=== PATIENT | male | born 1995 | race Caucasian/White ===

== ENCOUNTER 2019-09-11 12:18 | Day surgery (SDC) | payer OTHER ==
[~2019-09-11 12:18] MED LIST: CEFAZOLIN SODIUM IN 0.9 % NACL 2 GM/100 ML BAG IV ONE
[2019-09-11] MEDS ORDERED: HYDROmorphone 1 MG/ML CARPUJECT IVP ONE (12:19)
[2019-09-11] MEDS ORDERED: LACTATED RINGERS 1,000 ML IV ONE (12:25)
--- NOTE | 2019-09-11 12:46 | ANESTHESIA ---
Pre-Anesthesia VS, & Labs - Diagnosis left femur osteochondroma - Procedure excisionleft femur osteochondroma Vital Signs: Temp Pulse Resp BP Pulse Ox 36.9 C 63 16 124/76 100 09/11/19 12:29 09/11/19 12:29 09/11/19 12:29 09/11/19 12:29 09/11/19 12:29 Height 6 ft Weight (kg) 63.5 kg Home Medications and Allergies Home Medications: Ambulatory Orders No Known Home Medications 08/31/19 No Known Home Medications 08/31/19 Allergies/Adverse Reactions: Allergies Allergy/AdvReac Type Severity Reaction Status Date / Time shellfish derived Allergy Itching Verified 09/11/19 12:38 Anes History & Medical History - Anesthetic History Anesthesia Complications: reports: Other-see comment (no previous anesthetic) Family history of Anesthesia Complications: Denies Family history of Malignant Hyperthermia: Denies - Medical History Cardiovascular: reports: None Pulmonary: reports: None Gastrointestinal: reports: None Urinary: reports: None Neuro: reports: None Musculoskeletal: reports: Other Endocrine/Autoimmune: reports: None Skin: reports: None Smoking Status: Never smoker Psychosocial: reports: Alcohol (" may be 3 drinks a week") Exam General: Alert, Oriented x3, Cooperative, No acute distress Dental: WNL Mouth Openin Fingerbreadth Neck Mobility: Normal Mallampati classification: I Thyromental Distance: 4-6 cm Respiratory: Lungs clear, Normal breath sounds, No respiratory distress, No accessory muscle use Cardiovascular: Regular rate, Normal S1, Normal S2, No murmurs Abdomen: Normal bowel sounds, Soft, No tenderness, No hepatospenomegaly, No masses Extremities: No clubbing, No cyanosis, No edema, Normal pulses, No tenderness/swelling Neurological: Normal gait, Normal speech, Strength at 5/5 X4 ext, Normal tone, Sensation intact, Cranial nerves 3-12 NL, Reflexes 2+ Mental/Cognitive Status: Alert/Oriented X3, Normal for patient Cognitive Status: Within normal limits Plan Anesthesia Type: General Regional Block: Per Surgeon's request for Post Op pain control Consent for Procedure(s) Verified and Reviewed: Yes Code Status: Attempt Resuscitation ASA classification: 1-Healthy patient Is this case an emergency?: Yes
[2019-09-11] MEDS ORDERED: BUPIVACAINE 0.5% PF 30 ML VIAL ONE (13:29)
[2019-09-11] MEDS ORDERED: DEXAMETHASONE 4 MG/ML VIAL IVP ONE (14:07)
[2019-09-11] MEDS ORDERED: ePHEDrine 50 MG/ML VIAL IVP ONE (14:07)
[2019-09-11] MEDS ORDERED: LIDOCAINE-MPF 2% 5 ML VIAL IM ONE (14:07)
[2019-09-11] MEDS ORDERED: MIDAZOLAM 2 MG/2 ML VIAL IVP ONE (14:07)
[2019-09-11] MEDS ORDERED: ONDANSETRON 4 MG/2 ML VIAL IVP ONE (14:07)
[2019-09-11] MEDS ORDERED: ACETAMINOPHEN 1,000 MG/100 ML 100 ML IV ONE ×3 (14:07→14:48)
[2019-09-11] MEDS ORDERED: PROPOFOL 200 MG/20 ML VIAL IVP ONE (14:07)
[2019-09-11] MEDS ORDERED: fentaNYL 100 MCG/2 ML VIAL IVP ONE (14:07)
[2019-09-11] MEDS ORDERED: oxyCODONE 5 MG TABLET PO PRN (15:38)
[2019-09-11] MEDS ORDERED: ONDANSETRON 4 MG/2 ML VIAL IVP PRN (15:38)
--- NOTE | 2019-09-11 15:48 | OPERATIVE REPORT ---
Operative Report - Other Other Information/Narrative: Date of Surgery: 11 September 2019 Pre-Op Diagnosis: Left distal femur osteochondroma Procedure: Left distal femur mass excision Postop Diagnosis: Same Primary Surgeon: Ben Ndiaye Secondary Surgeon: None Complications: None Tourniquet Time: 60 minutes EBL: 5 cc Implants: None Postoperative Protocol: No impact activities for 6 weeks. Range of motion and strengthening as tolerated. Indication For Surgery: 24-year-old male with years of a mass on his femur but recently became symptomatic to the point where he would like to do something about it. Imaging was consistent with an benign osteochondroma. Risks and benefits were discussed. I specifically discussed the risk that this could be malignant and further surgery would be required. I also discussed the risk that it would return.. The risks, benefits, and alternatives were discussed. Risks include pain, bleeding, infection, damage to nearby structures, numbness, lack of symptom relief, implant complications, nonunion, need for further surgery, DVT, PE, stroke, and . Written consent was obtained. Procedure in Detail: The patient was met in the pre-operative hold area on the day of the procedure. The operative extremity was signed and questions were answered. The patient was brought to the operating room and a general anesthetic was administered. Supine position was used and all bony prominences were padded. Standard prepping and draping was performed. A time out confirmed patient identification, laterality, procedure, allergies, antibiotics, and images. An Esmarch was used to exsanguinate the limb and the tourniquet was elevated to 250 mmHg. 6 cm incision was made in line with the mass. Full-thickness skin layer was created and I entered the fascia longitudinally. I then dissected the vastus medialis oblique off of the fascia and retracted it anteriorly a thin layer of vastus intermedius was between the top of the mass and so I longitudinally split in line with its fibers. Identified the base of the mass and used a curved osteotome to free it from the underlying femur. It was then removed en bloc and passed to the back table. X-ray confirmed the mass had been removed. The surrounding pseudo-bursa from the mass was also excised and sent for pathology. A rondure and rasp were used to smooth all edges. The x-ray confirmed that I was distal enough on the shaft and into the metaphyseal flare. The wound was then irrigated copiously and closed in a layered fashion with 0 Vicryl in the fascia, 2-0 Vicryl in the dermis and running Monocryl in the skin. Mastisol and Steri-Strips were applied and a sterile dressing was applied. He was awakened and transferred to recovery room.
--- NOTE | 2019-09-11 15:49 | XRAY Report ---
Reason: EXCISION OSTEOCONDROMA LEFT FEMUR Procedure Date: 09/11/2019 Accession Number: [id number] / [id number] Procedure: [place] - OR C-Arm Procedure CPT Code: Final Report FULL RESULT: EXAM: FLUOROSCOPIC GUIDANCE EXAM DATE: 09/11/2019 03:16 PM. CLINICAL HISTORY: EXCISION OSTEOCONDROMA LEFT FEMUR. COMPARISON: None. FINDINGS IMPRESSION: Fluoroscopic guidance provided for left femur surgery. Total fluoroscopy time: 0.1 minute. Number of images: 3. RADIA
[2019-09-11] MEDS ORDERED: ONDANSETRON 4 MG/2 ML VIAL ONE (15:54)
[2019-09-11] MEDS ORDERED: KETOROLAC 15 MG/ML VIAL ONE (16:03)
[2019-09-11] MEDS ORDERED: METOCLOPRAMIDE 10 MG/2 ML VIAL ONE (16:07)
[2019-09-11] MEDS ORDERED: oxyCODONE 5 MG TABLET ONE (16:51)
[2019-09-11 17:06] VITALS: BP 104/68
== END 2019-09-11 12:19 | disposition home or self-care (01) ==
LOC: SDS 12:18
PROVIDERS: ATTEND Orthopaedic Surgery
PROC: 0QBC0ZZ Excision of Left Lower Femur, Open Approach (ICD-10-PCS; principal; 2019-09-11 13:15)
DX: D16.22 Benign neoplasm of long bones of left lower limb (principal)

== ENCOUNTER 2019-09-16 15:06 | Emergency (ER) | payer OTHER ==
[2019-09-16 15:20] VITALS: BP 88/54
--- NOTE | 2019-09-16 15:35 | ED Physician Documentation ---
History of Present Illness - Stated complaint Stated Complaint: POST OP PX - Chief complaint Chief Complaint: Ext Problem - History obtained from History obtained from: Patient - History of Present Illness Timing: Last night - Additonal information Additional information: 24-year-old active [employer] male has had an osteochondroma removed from his left femur. He had this done 5 days ago. He was taking some oxycodone every 4 hours. He is run out of pain medication last night and had a very sleepless night last night. He has come to the emergency department this morning with concerns about swelling and discoloration to the backside of his leg as well as unrelenting pain and no pain medication. He did email his orthopedic surgeon he has not had an answer. Review of Systems Constitutional: denies: Fever, Chills Eyes: denies: Decreased vision Ears: denies: Ear pain Nose: denies: Rhinorrhea / runny nose, Congestion Respiratory: denies: Cough GI: denies: Nausea, Vomiting : denies: Dysuria Skin: denies: Rash Musculoskeletal: reports: Extremity pain, Extremity swelling, Pain with weight bearing. denies: Neck pain, Back pain Neurologic: denies: Generalized weakness, Focal weakness, Numbness PD PAST MEDICAL HISTORY - Past Medical History Cardiovascular: None Respiratory: None Neuro: None Endocrine/Autoimmune: None GI: None : None HEENT: None Psych: None Musculoskeletal: Other Derm: None - Present Medications Home Medications: Ambulatory Orders Medication Instructions Recorded Confirmed Hydrocodone/Acetaminophen 1 - 2 each PO Q6H PRN #14 tablet 09/16/19 [Hydrocodon-Acetaminophen 5-325] - Allergies Allergies/Adverse Reactions: Allergies Allergy/AdvReac Type Severity Reaction Status Date / Time shellfish derived Allergy Itching Verified 09/16/19 15:15 - Social History Smoking Status: Never smoker PD ED PE NORMAL - Vitals Vital signs reviewed: Yes (hypotensive mild) - General General: Alert and oriented X 3, No acute distress, Well developed/nourished - HEENT HEENT: Atraumatic, PERRL, EOMI - Respiratory Respiratory: Clear bilaterally - Derm Derm: Normal color, Warm and dry, No rash - Extremities Extremities: Other (The left leg has a surgical dressing over a wound on the ricco-medial aspect of the left distal femur. There are no changes to the skin surrounding the surgical site to suggest any inflammation. He does have some ecchymosis to the posterior aspect of the distal femur and all the way up to the buttocks. Consistent with layering of subcutaneous blood. He has the appropriate coloration at 5 days. He does not have swelling or blood tracking below the knee. He does not have any evidence of cellulitis or lymphangitic streaking.) PD ED PE EXPANDED - Extremities TIMOTHY LE visual: 1 - bruising (expected dependant ecchymosis), swelling (expected dependant) Results - Vitals Vitals: Vital Signs - 24 hr 09/16/19 15:15 Temperature 37.1 C Heart Rate 86 Respiratory 15 Rate Blood Pressure 88/54 L O2 Saturation 99 Oxygen O2 Source Room air PD MEDICAL DECISION MAKING - ED course Complexity details: reviewed old records, considered differential, d/w patient, d/w family ED course: 24-year-old male 5 days postop has postoperative hematoma in the appropriate location and appropriate amount for 5 days postop. He does have some pain associated with his surgical site and we will change his pain medication to hydrocodone and prescribe only a limited amount of 14 pills. I have discussed with the patient narcotic use and the potential for habit-forming I have recommended that he stop the hydrocodone as soon as he can and switch to Tylenol when he does that. I have indicated to him to not take additional Tylenol while he is taking the hydrocodone. Departure - Departure Disposition: 01 Home, Self Care Clinical Impression: Post-operative pain Postoperative hematoma Qualifiers: Surgical complication system/body Area: musculoskeletal system Procedure type: musculoskeletal Qualified Code(s): M96.840 - Postprocedural hematoma of a musculoskeletal structure following a musculoskeletal system procedure Condition: Stable Instructions: ED Hematoma, ED Post Op Pain Follow-Up: [facility] [Provider Group] Prescriptions: Hydrocodone/Acetaminophen [Hydrocodon-Acetaminophen 5-325] 1 - 2 each PO Q6H PRN #14 tablet PRN Reason: pain
== END 2019-09-16 15:52 | disposition home or self-care (01) ==
LOC: ED 15:06
DX: G89.18 Other acute postprocedural pain (principal); M96.840 Postprocedural hematoma of a musculoskeletal structure following a musculoskeletal system procedure
CPT/HCPCS: 99282; 99284

== ENCOUNTER 2021-03-27 13:05 | Emergency (ER) | payer OTHER ==
[2021-03-27 13:17] VITALS: BP 130/73
[2021-03-27 13:38] LABS: BASOPHILS # (AUTO) 0.1 10^3/uL (0.0-0.1); EOSINOPHILS # (AUTO) 0.9 10^3/uL (0.0-0.7); EOSINOPHILS % (AUTO) 9.9 %; HCT - HEMATOCRIT 46.4 % (42.0-52.0); HGB - HEMOGLOBIN 16.1 g/dL (14.0-18.0); LYMPHOCYTES # (AUTO) 2.3 10^3/uL (1.5-3.5); LYMPHOCYTES % (AUTO) 26.2 %; MEAN CORPUSCULAR HEMOGLOBIN 30.3 pg (27.0-31.0); MEAN CORPUSCULAR HGB CONC 34.7 g/dL (32.0-36.0); MEAN CORPUSCULAR VOLUME 87.4 fL (80.0-94.0); MEAN PLATELET VOLUME 9.5 fL (7.4-11.4); MONOCYTES # (AUTO) 0.6 10^3/uL (0.0-1.0); NEUTROPHILS # (AUTO) 4.9 10^3/uL (1.5-6.6); NEUTROPHILS % (AUTO) 55.7 %; PLT - PLATELET COUNT 281 10^3/uL (130-450); RED BLOOD COUNT 5.31 10^6/uL (4.70-6.10); RED CELL DISTRIBUTION WIDTH 11.6 % (12.0-15.0); WHITE BLOOD COUNT 8.8 x10^3/uL (4.8-10.8)
[2021-03-27 13:38] LABS: BILIRUBIN,URINE NEGATIVE (NEGATIVE); GLUCOSE, URINE (UA) NEGATIVE (NEGATIVE); KETONES,URINE (UA) NEGATIVE (NEGATIVE); LEUKOCYTE ESTERASE, URINE NEGATIVE (NEGATIVE); NITRITE,URINE NEGATIVE (NEGATIVE); OCCULT BLOOD,URINE NEGATIVE (NEGATIVE); PH,URINE 8.5 PH (5.0-7.5); PROTEIN,URINE NEGATIVE (NEGATIVE); UROBILINOGEN,URINE 0.2 (NORMAL) E.U./dL (NORMAL)
[2021-03-27 13:39] LABS: CLARITY,URINE CLEAR (CLEAR)
[2021-03-27] MEDS ORDERED: SODIUM CHLORIDE 0.9% 1,000 ML IV STA (13:48)
[2021-03-27] MEDS ORDERED: ONDANSETRON 4 MG/2 ML VIAL IVP STA (13:48)
[2021-03-27 13:52] LABS: ALBUMIN 5.2 g/dL (3.2-5.5); ALBUMIN/GLOBULIN RATIO 1.8 (1.0-2.2); CALCIUM 10.7 mg/dL (8.5-10.3); CREATININE 1.1 mg/dL (0.6-1.2); POTASSIUM 3.9 mmol/L (3.5-5.0); TOTAL PROTEIN 8.1 g/dL (6.7-8.2)
[2021-03-27] MEDS ORDERED: KETOROLAC 30 MG/ML VIAL IVP STA (14:24)
--- NOTE | 2021-03-27 14:43 | ED Physician Documentation ---
History of Present Illness - Stated complaint Stated Complaint: ABD PX - Chief complaint Chief Complaint: Abd Pain - History obtained from History obtained from: Patient - History of Present Illness Timing: Today Pain level max: 10 Pain level now: 3 - Additonal information Additional information: Patient is a 26-year-old male who presents to the emergency department with abdominal pain today. He states crampy, left-sided. Nothing makes it better or worse. Was nauseated as well but no vomiting chills. No recent travel. No antibiotics. He states he has been constipated. No diarrhea. No blood in the stool. Has not had similar symptoms previously. Review of Systems Constitutional: denies: Fever, Chills Nose: denies: Rhinorrhea / runny nose, Congestion Throat: denies: Sore throat Cardiac: denies: Chest pain / pressure, Palpitations Respiratory: denies: Cough GI: reports: Nausea, Constipation. denies: Vomiting, Diarrhea Musculoskeletal: denies: Neck pain, Back pain Neurologic: denies: Headache PD PAST MEDICAL HISTORY - Past Medical History Past Medical History: Yes Cardiovascular: None Respiratory: None Neuro: None Endocrine/Autoimmune: None GI: None : None HEENT: None Psych: None Musculoskeletal: Other Derm: None - Present Medications Home Medications: Ambulatory Orders Medication Instructions Recorded Confirmed Dicyclomine [Bentyl] 10 mg PO QID PRN #30 03/27/21 Ondansetron Odt [Zofran] 4 mg TL Q6H PRN #10 tablet 03/27/21 - Allergies Allergies/Adverse Reactions: Allergies Allergy/AdvReac Type Severity Reaction Status Date / Time shellfish derived Allergy Itching Verified 03/27/21 13:15 - Social History Smoking Status: Never smoker PD ED PE NORMAL - Vitals Vital signs reviewed: Yes - General General: Alert and oriented X 3, No acute distress - HEENT HEENT: Moist mucous membranes - Neck Neck: Supple, no meningeal sign - Cardiac Cardiac: RRR - Respiratory Respiratory: No respiratory distress, Clear bilaterally - Abdomen Abdomen: Soft, Non tender, Non distended - Back Back: No CVA TTP, No spinal TTP - Derm Derm: Warm and dry, No rash - Extremities Extremities: No edema - Neuro Neuro: Alert and oriented X 3 - Psych Psych: Normal mood, Normal affect Results - Vitals Vitals: Vital Signs - 24 hr 03/27/21 13:15 Temperature 36.7 C Heart Rate 79 Respiratory 18 Rate Blood Pressure 130/73 O2 Saturation 98 Oxygen O2 Source Room air - Labs Labs: Laboratory Tests 03/27/21 03/27/21 03/27/21 13:25 13:33 13:33 WBC 8.8 RBC 5.31 Hgb 16.1 Hct 46.4 MCV 87.4 MCH 30.3 MCHC 34.7 RDW 11.6 L Plt Count 281 MPV 9.5 Neut # (Auto) 4.9 Lymph # (Auto) 2.3 [place] # (Auto) 0.6 Eos # (Auto) 0.9 H Baso # (Auto) 0.1 Absolute Nucleated RBC 0.00 Nucleated RBC % 0.0 Sodium 136 Potassium 3.9 Chloride 102 Carbon Dioxide 24 Anion Gap 10.0 BUN 15 Creatinine 1.1 Estimated GFR (MDRD) 82 L Glucose 106 H Calcium 10.7 H Total Bilirubin 1.0 AST 23 ALT 16 Alkaline Phosphatase 63 Total Protein 8.1 Albumin 5.2 Globulin 2.9 Albumin/Globulin Ratio 1.8 Lipase 24 Urine Color YELLOW Urine Clarity CLEAR Urine pH 8.5 H Ur Specific [place] 1.020 Urine Protein NEGATIVE Urine Glucose (UA) NEGATIVE Urine Ketones NEGATIVE Urine Occult Blood NEGATIVE Urine Nitrite NEGATIVE Urine Bilirubin NEGATIVE Urine Urobilinogen 0.2 (NORMAL) Ur Leukocyte Esterase NEGATIVE Ur Microscopic Review NOT INDICATED Urine Culture Comments NOT INDICATED PD MEDICAL DECISION MAKING - ED course Complexity details: reviewed results, re-evaluated patient, considered differential, d/w patient ED course: Abdomen remains soft, nontender nondistended on serial exam. Patient is very we ll-appearing, nontoxic. Afebrile. Tolerating p.o. without difficulty. No indication for imaging at this time. We will continue supportive care and have him follow-up with his doctor for further care. Likely viral related illness. Patient counseled regarding signs and symptoms for which I believe and urgent re-evaluation would be necessary. Patient with good understanding of and agreement to plan and is comfortable going home at this time This document was made in part using voice recognition software. While efforts are made to proofread this document, sound alike and grammatical errors may occur. Departure - Departure Disposition: 01 Home, Self Care Clinical Impression: Abdominal pain Qualifiers: Abdominal location: unspecified location Qualified Code(s): R10.9 - Unspecified abdominal pain Condition: Good Instructions: ED Abdominal Pain Unkn Cause, ED Nausea Vomiting Follow-Up: Your,doctor in 1 week [Other] Prescriptions: Dicyclomine [Bentyl] 10 mg PO QID PRN #30 PRN Reason: Abdominal Pain Ondansetron Odt [Zofran] 4 mg TL Q6H PRN #10 tablet PRN Reason: Nausea / Vomiting Comments: This should improve over the next 24 to 48 hours. Please return if you worsen. Drink plenty of fluids. Discharge Date/Time: 03/27/21 15:35
== END 2021-03-27 15:35 | disposition home or self-care (01) ==
LOC: ED 13:05
DX: R10.9 Unspecified abdominal pain (principal)
CPT/HCPCS: 36415; 80053; 81001; 81003; 83690; 85025; 87086; 96374; 96375; 99284

== ENCOUNTER 2021-03-28 12:34 | Emergency (ER) | payer OTHER ==
[2021-03-28 13:15] LABS: BASOPHILS # (AUTO) 0.1 10^3/uL (0.0-0.1); BASOPHILS % (AUTO) 0.7 %; EOSINOPHILS # (AUTO) 0.7 10^3/uL (0.0-0.7); EOSINOPHILS % (AUTO) 7.9 %; HGB - HEMOGLOBIN 14.1 g/dL (14.0-18.0); MEAN CORPUSCULAR HEMOGLOBIN 30.5 pg (27.0-31.0); MEAN CORPUSCULAR HGB CONC 34.4 g/dL (32.0-36.0); MEAN CORPUSCULAR VOLUME 88.7 fL (80.0-94.0); MEAN PLATELET VOLUME 9.4 fL (7.4-11.4); MONOCYTES # (AUTO) 0.8 10^3/uL (0.0-1.0); NEUTROPHILS # (AUTO) 5.1 10^3/uL (1.5-6.6); NEUTROPHILS % (AUTO) 59.2 %; PLT - PLATELET COUNT 224 10^3/uL (130-450); RED BLOOD COUNT 4.62 10^6/uL (4.70-6.10); RED CELL DISTRIBUTION WIDTH 11.6 % (12.0-15.0); WHITE BLOOD COUNT 8.5 x10^3/uL (4.8-10.8)
[2021-03-28] MEDS ORDERED: SODIUM CHLORIDE 0.9% 1,000 ML IV STA (13:22)
[2021-03-28] MEDS ORDERED: ONDANSETRON 4 MG/2 ML VIAL IVP STA (13:22)
[2021-03-28] MEDS ORDERED: HYDROmorphone 1 MG/ML CARPUJECT IVP STA ×2 (13:22→14:24)
[2021-03-28 13:26] LABS: ALBUMIN 4.4 g/dL (3.2-5.5); ALBUMIN/GLOBULIN RATIO 1.6 (1.0-2.2); BILIRUBIN,TOTAL 1.1 mg/dL (0.2-1.0); CALCIUM 9.1 mg/dL (8.5-10.3); CREATININE 1.4 mg/dL (0.6-1.2); POTASSIUM 3.9 mmol/L (3.5-5.0); TOTAL PROTEIN 7.1 g/dL (6.7-8.2)
--- NOTE | 2021-03-28 13:35 | ED Physician Documentation ---
History of Present Illness - Stated complaint Stated Complaint: ABD PX - Chief complaint Chief Complaint: Abd Pain - Additonal information Additional information: 26-year-old male presents to the emergency department for the second time in 2 days for evaluation of generalized abdominal pain. He reports mostly upper abdominal as well as left-sided pain that comes in waves. He states that sometimes he feels better if he sits on the toilet but that it does not necessarily get better with bowel movement or flatulence. He is eating okay but is quite nauseated. No history of pertinent past surgical history. Seen here yesterday and labs were unrevealing. He was prescribed Bentyl but he does not feel it is improve the symptoms. Denies urinary symptoms hematuria. No melena or hematochezia Review of Systems Constitutional: denies: Fever, Chills Throat: reports: Reviewed and negative Cardiac: reports: Reviewed and negative Respiratory: reports: Reviewed and negative GI: reports: Abdominal Pain, Nausea. denies: Vomiting, Constipation, Diarrhea, Hematemesis, Bloody / black stool : reports: Reviewed and negative Skin: reports: Reviewed and negative Musculoskeletal: reports: Reviewed and negative Neurologic: reports: Reviewed and negative PD PAST MEDICAL HISTORY - Past Medical History Past Medical History: Yes Cardiovascular: None Respiratory: None Neuro: None Endocrine/Autoimmune: None GI: None : None HEENT: None Psych: None Musculoskeletal: Other Derm: None Other Past Medical History: strained ankle - Past Surgical History Past Surgical History: No - Present Medications Home Medications: Ambulatory Orders Medication Instructions Recorded Confirmed Dicyclomine [Bentyl] 10 mg PO QID PRN #30 03/27/21 Ondansetron Odt [Zofran] 4 mg TL Q6H PRN #10 tablet 03/27/21 polyethylene glycoL 3350 [Miralax] 17 gm PO DAILY PRN #1 bottle 03/28/21 - Allergies Allergies/Adverse Reactions: Allergies Allergy/AdvReac Type Severity Reaction Status Date / Time shellfish derived Allergy Itching Verified 03/28/21 12:42 - Social History Does the pt smoke?: No Smoking Status: Never smoker Does the pt drink ETOH?: No Does the pt have substance abuse?: No - Immunizations Immunizations are current?: Yes - POLST Patient has POLST: No PD ED PE EXPANDED - General General: Alert, In Pain - Neck Neck: Supple w/out meningeal sx. No: Adenopathy - Cardiac Cardiac: Regular Rate, Radial strong equal. No: Murmur Present - Respiratory Respiratory: Clear to ausultation venancio. No: Distress, Labored - Abdomen Abdomen: Normal Bowel sounds, Tender to palpation (Generalized tenderness of the left upper and lower abdomen. No guarding or rebound. Negative Contreras's and negative McBurney's.) - Derm Derm: Normal color, Warm and dry. No: Rash - Neuro Neuro: Alert and Oriented X 3, CNII-XII intact Results - Vitals Vitals: Vital Signs - 24 hr 03/28/21 12:38 Temperature 36.9 C Heart Rate 78 Respiratory 18 Rate Blood Pressure 132/77 H O2 Saturation 100 Oxygen O2 Source Room air - Labs Labs: Laboratory Tests 03/28/21 03/28/21 13:02 13:02 WBC 8.5 RBC 4.62 L Hgb 14.1 Hct 41.0 L MCV 88.7 MCH 30.5 MCHC 34.4 RDW 11.6 L Plt Count 224 MPV 9.4 Neut # (Auto) 5.1 Lymph # (Auto) 2.0 [place] # (Auto) 0.8 Eos # (Auto) 0.7 Baso # (Auto) 0.1 Absolute Nucleated RBC 0.00 Nucleated RBC % 0.0 Sodium 138 Potassium 3.9 Chloride 104 Carbon Dioxide 27 Anion Gap 7.0 BUN 15 Creatinine 1.4 H Estimated GFR (MDRD) 62 L Glucose 94 Calcium 9.1 Total Bilirubin 1.1 H AST 19 ALT 14 Alkaline Phosphatase 60 Total Protein 7.1 Albumin 4.4 Globulin 2.7 Albumin/Globulin Ratio 1.6 Lipase 26 - Rads (name of study) CT abd Radiology: Final report received (No renal stone or hydronephrosis. Appendix is normal. No free fluid or free air. No dilated loops of bowel. Moderate colonic fecal loading) PD MEDICAL DECISION MAKING - ED course Complexity details: reviewed results, considered differential, d/w patient, d/w family ED course: This is a very well-appearing 26-year-old male that presents the emergency department the second time in 2 days for left-sided abdominal pain. Reports persistent nausea but no vomiting. Labs last 2 days have been entirely unremarkable. However he did have moderate tenderness with palpation. CT of the abdomen was completed without any worrisome findings. It does however suggest moderate colonic fecal loading. I discussed this finding with the patient and his at the bedside. I am recommending MiraLAX to help with likely constipation. Patient is to follow-up with [email or web address]. Emergent return precautions discussed for worsening symptoms. Departure - Departure Disposition: 01 Home, Self Care Clinical Impression: Left sided abdominal pain Constipation Qualifiers: Constipation type: unspecified constipation type Qualified Code(s): K59.00 - Constipation, unspecified Condition: Stable Record reviewed to determine appropriate education?: Yes Instructions: ED Constipation Ch Prescriptions: polyethylene glycoL 3350 [Miralax] 17 gm PO DAILY PRN #1 bottle PRN Reason: Constipation Comments: Napoleon you are seen in the ER today for nausea and left-sided abdominal pain. Your screening labs are all essentially normal. The CT of the abdomen did not show any worrisome findings. There are no kidney stones, your kidneys liver spleen and gallbladder all look normal. You do not have appendicitis. The radiologist however does see moderate colonic fecal loading. This is another way to state that you likely have constipation. I would like you to fill the prescription for the MiraLAX and takes twice daily until you have 2-3 watery bowel movements. I then do recommend fiber supplementation to help maintain regularity and keep the colon free of fecal loading. If at any point you develop fevers, have uncontrolled vomiting black or bloody stools or feel that your symptoms do not improve then please return immediately to the ER for a second look.
[2021-03-28] MEDS ORDERED: IOPAMIDOL-300 100 ML VIAL ONE (14:32)
--- NOTE | 2021-03-28 15:03 | CT Report ---
PROCEDURE: Abdomen/Pelvis WO INDICATIONS: nausea, left sided ab pain TECHNIQUE: Noncontrast 5 mm thick sections acquired from the diaphragms to the symphysis. 5 mm coronal and sagi ttal reformats were then performed. For radiation dose reduction, the following was used: automated exposure control, adjustment of mA and/or kV according to patient size. COMPARISON: None. FINDINGS: Image quality: Excellent. ABDOMEN: Lung bases: Lung bases are clear. Heart size is normal. Solid organs: Liver and spleen are normal in size. Gallbladder is normal Pancreas is normal in con tours. No adrenal nodules. Kidneys are normal in size, without hydronephrosis or nephrolithiasis. Peritoneum and bowel: Unenhanced bowel loops demonstrate normal wall thickness and caliber. Moderate amount of stool noted throughout the colon. No free fluid or air. Nodes and vessels: No retroperitoneal or mesenteric adenopathy by size criteria. Aorta and inferior vena cava are normal in caliber. Miscellaneous: No ventral hernias. PELVIS: Genitourinary: Bladder wall thickness is normal. Miscellaneous: No inguinal hernias or adenopathy. Bones: No suspicious bony lesions. No vertebral body compression fractures. IMPRESSION: 1. No renal stone or hydronephrosis. 2. Appendix is normal. 3. No free fluid or free air. 4. No dilated loops of bowel. 5. Moderate colonic fecal loading. Please correlate with clinical data. Reviewed by: Caren Quinonez MD, PhD on 03/28/2021 3:02 PM PDT Approved by: Caren Quinonez MD, PhD on 03/28/2021 3:02 PM PDT Station ID: [id number]
[2021-03-28 16:00] VITALS: BP 128/79
== END 2021-03-28 16:02 | disposition home or self-care (01) ==
LOC: ED 12:34
DX: K59.00 Constipation, unspecified (principal)
CPT/HCPCS: 36415; 74176; 80053; 83690; 85025; 96374; 96375; 96376; 99284; J1170

== ENCOUNTER 2021-10-28 20:34 | Emergency (ER) | payer OTHER ==
--- NOTE | 2021-10-28 22:12 | ED Physician Documentation ---
History of Present Illness - Stated complaint Stated Complaint: HIGH HEART RATE - Chief complaint Chief Complaint: Cardiac - History obtained from History obtained from: Patient - Additonal information Additional information: 26-year-old man with past medical history of asthma presents with chest tightness, heart pounding, tunnel vision, dizziness waking him from sleep an hour prior to arrival.Patient states he had similar symptoms earlier today and has been having intermittently since starting amitriptyline recently for migraine headaches. He saw his primary career services manager at the [facility] and states he was told everything was okay. Denies steroid use, leg swelling, calf pain, cough, fever, hemoptysis. Review of Systems Ten Systems: 10 systems reviewed and negative Constitutional: denies: Fever, Chills Cardiac: reports: Chest pain / pressure, Palpitations Respiratory: reports: Dyspnea GI: denies: Nausea Neurologic: reports: Other (dizziness) PD PAST MEDICAL HISTORY - Past Medical History Past Medical History: Yes Cardiovascular: None Respiratory: Asthma Neuro: Headaches, Migraines Endocrine/Autoimmune: None GI: None : None HEENT: None Psych: None Musculoskeletal: Other Derm: None - Past Surgical History Past Surgical History: No - Present Medications Home Medications: Ambulatory Orders Medication Instructions Recorded Confirmed Amitriptyline HCl 50 mg PO HS 10/28/21 10/28/21 Rizatriptan Benzoate [Rizatriptan] 10 mg PO PRN PRN 10/28/21 10/28/21 - Allergies Allergies/Adverse Reactions: Allergies Allergy/AdvReac Type Severity Reaction Status Date / Time shellfish derived Allergy Itching Verified 10/28/21 20:53 - Social History Does the pt smoke?: No Smoking Status: Never smoker Does the pt drink ETOH?: No Does the pt have substance abuse?: No - Immunizations Immunizations are current?: Yes - POLST Patient has POLST: No PD ED PE NORMAL - Vitals Vital signs reviewed: Yes - General General: Alert and oriented X 3, No acute distress, Well developed/nourished - HEENT HEENT: Atraumatic, PERRL, EOMI - Neck Neck: Supple, no meningeal sign - Cardiac Cardiac: RRR, No murmur - Respiratory Respiratory: No respiratory distress, Clear bilaterally - Abdomen Abdomen: Non tender, Non distended - Derm Derm: Normal color, Warm and dry - Extremities Extremities: No deformity - Neuro Neuro: Alert and oriented X 3, No motor deficit, No sensory deficit - Psych Psych: Normal mood, Normal affect Results - Vitals Vitals: Vital Signs - 24 hr 10/28/21 10/28/21 10/28/21 20:45 20:56 21:26 Temperature 36.7 C Heart Rate 105 H 95 94 Respiratory 16 20 18 Rate Blood Pressure 145/78 H 135/90 H 125/94 H O2 Saturation 99 97 97 Oxygen O2 Source Room air PD MEDICAL DECISION MAKING - ED course ED course: 26yM p/w palpitations and multiple other symptoms he attributes to side effect of amitryptaline. ekg and cardiac monitoring noncontributory. exam benign. advised him to f/u with pcp for possible medication adjustment. return precautions given. Departure - Departure Disposition: 01 Home, Self Care Clinical Impression: Chest tightness, Palpitations Condition: Stable Instructions: ED Palpitations Comments: You are seen in the emergency department for evaluation of palpitations. Your cardiac monitoring was normal and your EKG showed no emergent findings. You should follow-up with your primary career services manager and consider switching from amitriptyline to another medication such as Imitrex or sumatriptan which also has been shown to be effective against migraines. Please return to the emergency department you have any new or worsening symptoms or other concerns. Bring your paperwork with you to your PCM appointment.
[2021-10-28 22:18] VITALS: BP 130/85
== END 2021-10-28 22:29 | disposition home or self-care (01) ==
LOC: ED 20:34
DX: R07.9 Chest pain, unspecified (principal); R00.2 Palpitations
CPT/HCPCS: 36415; 93005; 99282; 99284

== ENCOUNTER 2022-03-23 11:42 | Emergency (ER) | payer OTHER ==
[2022-03-23 12:36] VITALS: BP 139/69
--- NOTE | 2022-03-23 13:02 | XRAY Report ---
PROCEDURE: Foot 3 View RT INDICATIONS: Trauma. Stepped on a nail. Pain. TECHNIQUE: 3 views of the foot were acquired. COMPARISON: None. FINDINGS: Bones: No fractures or dislocations. No suspicious bony lesions. Soft tissues: No tibiotalar joint effusion. No radiopaque foreign body. IMPRESSION: No acute fracture or radiopaque foreign body visualized. If symptoms persist, follow-up radiographs a nd/or CT may be helpful for further evaluation. Reviewed by: Ameya Keith MD on 03/23/2022 1:01 PM PDT Approved by: Ameya Keith MD on 03/23/2022 1:01 PM PDT Station ID: [id number]
--- NOTE | 2022-03-23 14:29 | ED Physician Documentation ---
PD HPI LOWER EXT INJURY - Stated complaint Stated Complaint: RT FT INJ BY NAIL - Chief complaint Chief Complaint: Ext Problem - History obtained from History obtained from: Patient - History of Present Illness PD HPI LOW EXT INJURY LOCATION: Right, Foot - Additional information Additional information: 27-year-old male with no reported past medical history presents for evaluation of right foot injury that occurred yesterday. Patient states he was walking barefoot outside Stepped on a nini nail. He was able to remove the nail, however today his foot is painful and it is hard for him to walk on it due to the pain. He states he is up-to-date on his tetanus shot for the . Patient is here today because his foot is painful and he can barely walk on it and he is supposed to have a PT test later this week. Review of Systems Ten Systems: 10 systems reviewed and negative Constitutional: denies: Fever, Chills, Myalgias, Fatigue, Weight Loss, Sweats, Reviewed and negative, Other Eyes: denies: Loss of vision, Decreased vision, Photophobia, Discharge, Irritat ion, Reviewed and negative, Other Ears: denies: Loss of hearing, Ear pain, Drainage/discharge, Tinnitus/ringing, Foreign body, Reviewed and negative, Other Nose: denies: Rhinorrhea / runny nose, Congestion, Epistaxis, Sinus pressure / pain, Foreign Body, Reviewed and negative, Other Throat: denies: Dental pain / toothache, Oral lesions / sores, Sore throat, Swollen tonsils, Swallowed foreign body, Reviewed and negative, Other : denies: Dysuria, Frequency, Hesitancy Skin: reports: Other (puncture, R foot) Musculoskeletal: reports: Extremity pain. denies: Neck pain, Back pain PD PAST MEDICAL HISTORY - Past Medical History Past Medical History: No Cardiovascular: None Respiratory: None Neuro: None Endocrine/Autoimmune: None GI: None : None HEENT: None Psych: None Musculoskeletal: Other Derm: None - Past Surgical History Past Surgical History: No - Present Medications Home Medications: Ambulatory Orders Medication Instructions Recorded Confirmed Amitriptyline HCl 50 mg PO HS 10/28/21 10/28/21 Rizatriptan Benzoate [Rizatriptan] 10 mg PO PRN PRN 10/28/21 10/28/21 Cefuroxime Axetil [Cefuroxime] 500 mg PO BID #10 tablet 03/23/22 - Allergies Allergies/Adverse Reactions: Allergies Allergy/AdvReac Type Severity Reaction Status Date / Time shellfish derived Allergy Itching Verified 03/23/22 12:36 - Social History Does the pt smoke?: No Smoking Status: Never smoker Does the pt drink ETOH?: No Does the pt have substance abuse?: No - Immunizations Immunizations are current?: Yes - POLST Patient has POLST: No PD ED PE NORMAL - Vitals Vital signs reviewed: Yes - General General: Alert and oriented X 3, No acute distress, Well developed/nourished - HEENT HEENT: Atraumatic, PERRL, EOMI, Ears normal, Moist mucous membranes, Pharynx benign, Dentition benign - Neck Neck: Supple, no meningeal sign, No bony TTP, No adenopathy, Thyroid normal, No JVD, No bruit, C-Spine cleared by NEXUS criteria - Cardiac Cardiac: RRR, No murmur, No gallop, No rub, Strong equal pulses - Respiratory Respiratory: No respiratory distress, Clear bilaterally - Abdomen Abdomen: Soft, Non tender, Non distended - Male Male : Deferred - Rectal Rectal: Deferred - Back Back: No CVA TTP, No spinal TTP - Derm Derm: Other (small puncture wound medial R foot near ankle) - Extremities Extremities: No tenderness to palpate, No edema, Other (TTP medial R foot near ankle) - Neuro Neuro: Alert and oriented X 3, 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 No foreign body visualized on x-ray. Since this is a dirty wound will treat with antibiotics empirically, however at this time there does not appear to be any evidence of cellulitis or infection. Patient is up-to-date on his tetanus shot. He was given a note for work and discharged home in stable condition. Departure - Departure Disposition: 01 Home, Self Care Clinical Impression: Puncture wound Condition: Stable Instructions: ED Wound Puncture General Prescriptions: Cefuroxime Axetil [Cefuroxime] 500 mg PO BID #10 tablet Forms: Activity restrictions Discharge Date/Time: 03/23/22 14:52
== END 2022-03-23 14:52 | disposition home or self-care (01) ==
LOC: ED 11:42
DX: S91.331A Puncture wound without foreign body, right foot, initial encounter (principal); W45.0XXA Nail entering through skin, initial encounter; Y93.01 Activity, walking, marching and hiking
CPT/HCPCS: 99283